=== PATIENT | female | born 1950 | race Caucasian/White ===

== ENCOUNTER 2017-05-28 11:05 | Emergency (ER) | payer OTHER ==
[~2017-05-28] VITALS: Ht 172.7 cm; Wt 91.0 kg
[~2017-05-28 11:05] MED LIST: CALA180T PO; CLON.1 PO; ENAL20TA81 PO; GLUCTAB PO; LORTS PO; MEVA40TA6 PO; PHEN12.5 PR; SYNT25TA PO
[2017-05-28 11:11] VITALS: PULSE 84; RESP 16; TEMP 98.7; O2SAT 95
--- NOTE | 2017-05-28 11:18 | PD ---
HPI Chief Complaint: Fall Time Seen by Provider: 11:15 Travel History International Travel<30 days: No Contact w/Intl Traveler<30days: No Traveled to known affect area: No History of Present Illness HPI 66-year-old female presents emergency department from work after trip and fall that occurred just prior to arrival. Says that she was walking out of the back door and tripped over the door frame, landing straight on her face. Says that she has pain to her nose, chin, left arm, and right arm. Says she fell to her knees as well but denies significant pain or limit to her ROM or ambulation. She denies loss of consciousness, blurred vision, headache. Denies any epistaxis. Denies neck pain or back pain. Says she is particularly concerned about a bruise to the right forearm that is tender to palpation. She denies any numbness or tingling but does have mild pain with range of motion of her forearm and wrist. PFSH Past Medical History Hx Anticoagulant Therapy: No Blood Disorders: No Heart Rhythm Problems: No Cancer: No High Cholesterol: Yes Chest Pain: No Congestive Heart Failure: No Diabetes: Yes Endocrine: Yes GERD: Yes Glaucoma: No Genitourinary: No Hepatitis: No Hiatal Hernia: Yes Hypertension: Yes Immune Disorder: No Musculoskeletal: No Neurologic: No Psychiatric: No Reproductive: No Respiratory: Yes Myocardial Infarction: No Sleep Apnea: Yes Thyroid Disease: Yes Past Surgical History Body Medical Devices: RODS, PINS AND PLATES RIGHT ANKLE Gynecologic Surgery: Yes (2 C SECTIONS, HYSTERECTOMY) Oral Surgery: Yes (MANDIBLE SX AGE 20) Social History Alcohol Use: No Tobacco Use: No Substance Use: No Allergies-Medications (Allergen,Severity, Reaction): Coded Allergies: No Known Allergies (Verified , 11/19/08) Reported Meds & Prescriptions Reported Meds & Active Scripts Active Reported Levothyroxine (Levothyroxine Sodium) 125 Mcg Tab 125 Mcg PO DAILY Lisinopril 20 Mg Tab 20 Mg PO DAILY Citalopram (Citalopram Hydrobromide) 10 Mg Tab 10 Mg PO DAILY Verapamil (Verapamil HCl) 80 Mg Tab 180 Mg PO BID Review of Systems Except as stated in HPI: all other systems reviewed are Neg Physical Exam Narrative GENERAL: WD, WN in NAD, ambulatory SKIN: Focused skin assessment warm/dry. HEAD: Atraumatic. Normocephalic. Nose- small abrasion, bleeding controlled with pressure. No epistaxis. Chin with small 1-1/2 cm abrasion, ecchymosis present EYES: Pupils equal and round. No scleral icterus. No injection or drainage. EOMI ENT: No nasal bleeding or discharge. Mucous membranes pink and moist. NECK: Trachea midline. No JVD. No midline TTP CARDIOVASCULAR: Regular rate and rhythm. No murmur appreciated. RESPIRATORY: No accessory muscle use. Clear to auscultation. Breath sounds equal bilaterally. GASTROINTESTINAL: Abdomen soft, non-tender, nondistended. Hepatic and splenic margins not palpable. right arm-full range of motion of shoulder and elbow. Tender palpation mid forearm, TTP to first and fourth and fifth metacarpals with slight ecchymosis. left arm-TTP to base of thumb and wrist BACK: No CVA tenderness. No rash. No point tenderness on palpation of the spine. MUSCULOSKELETAL: No obvious deformities. No clubbing. No cyanosis. No edema. NEUROLOGICAL: Awake and alert. No obvious cranial nerve deficits. Motor grossly within normal limits. Normal speech. PSYCHIATRIC: Appropriate mood and affect; insight and judgment normal. Data Data Last Documented VS Vital Signs Date Time Temp Pulse Resp B/P (MAP) Pulse Ox O2 Delivery O2 Flow Rate FiO2 05/28/17 14:04 05/28/17 11:11 98.7 [address] Facial Bones W/O Iv Cont (05/28/17 ) Ct Brain W/O Iv Contrast(Rout) (05/28/17 ) Ct Cerv Spine W/O Contrast (05/28/17 ) Forearm (2vws) (05/28/17 ) Hand, Complete (Kqu6saj) (05/28/17 ) Wrist, Complete ([id number]) (05/28/17 ) Hand, Complete ([id number]) (05/28/17 ) Ed Discharge Order (05/28/17 13:13) [facility] Medical Decision Making Medical Screen Exam Complete: Yes Emergency Medical Condition: Yes Differential Diagnosis nasal contusion, arm fracture, arm contusion Narrative Course 66-year-old female presents emergency department for evaluation of multiple injuries as a result of a trip and fall that occurred today. Last tetanus less than 5 years ago. Vital signs are stable. Imaging studies ordered for evaluation. Last Impressions Wrist X-Ray 05/28/17 0000 Signed Impressions: Service Date/Time: Sunday, May 28, 2017 11:33 - CONCLUSION: Negative for fracture or dislocation. Follow up in 7-10 days is suggested if symptoms persist. Ash Yung MD FACR Radius/Ulna X-Ray 05/28/17 0000 Signed Impressions: Service Date/Time: Sunday, May 28, 2017 11:33 - CONCLUSION: No acute right forearm abnormality is identified. Gael Pisano MD Maxillofacial CT 05/28/17 0000 Signed Impressions: Service Date/Time: Sunday, May 28, 2017 12:11 - CONCLUSION: Nondisplaced fractures paranasal spine. Septum is midline. Sinuses are clear. Ash Yung MD FACR Head CT 05/28/17 0000 Signed Impressions: Service Date/Time: Sunday, May 28, 2017 12:11 - CONCLUSION: No acute intracranial abnormality is identified. Gael Pisano MD Hand X-Ray 05/28/17 0000 Signed Impressions: Service Date/Time: Sunday, May 28, 2017 11:33 - CONCLUSION: Negative for fracture or dislocation. Follow up in 7-10 days is suggested if symptoms persist. Ash Yung MD FACR Hand X-Ray 05/28/17 0000 Signed Impressions: Service Date/Time: Sunday, May 28, 2017 11:33 - CONCLUSION: No acute right hand abnormality is identified. Gael Pisano MD Cervical Spine CT 05/28/17 0000 Signed Impressions: Service Date/Time: Sunday, May 28, 2017 12:11 - CONCLUSION: Reversal the normal cervical lordosis without fracture. Mild facet disease with minimal spinal stenosis C5-C6. Ash Yung MD FACR Advised that she should take Tylenol or Motrin per package instructions for pain. Advised that she should avoid nose blowing to reduce complications regarding nasal bone fracture. She should follow-up with her primary care physician for further evaluation. If her symptoms persist or worsen return to the emergency department for further evaluation. She states understanding will comply. Diagnosis Primary Impression: Nasal bone fracture Qualified Codes: S02.2XXA - Fracture of nasal bones, initial encounter for closed fracture Additional Impressions: Wrist contusion Qualified Codes: S60.212A - Contusion of left wrist, initial encounter Arm contusion Qualified Codes: S40.021A - Contusion of right upper arm, initial encounter Referrals: Primary Care Physician Additional Instructions: Use ice or heat for symptom relief. Elevate the joint above the heart to reduce swelling. You may use compression with Jon wrap or similar to reduce swelling. If symptoms persist or worsen, return to the emergency department. Follow up with your primary care physician within 2 days. Avoid any possible trauma to the nose. Avoid nose blowing for 1-2 weeks while your nose is healing. You may develop worsening bruises to the nose. This is normal. Apply ice to reduce swelling. Disposition: 01 DISCHARGE HOME Condition: Stable Funmi Castro May 28, 2017 11:18
[2017-05-28] MEDS ORDERED: VERA80TA PO (11:23)
[2017-05-28] MEDS ORDERED: LEVO125T4 PO (11:23)
[2017-05-28] MEDS ORDERED: CITA10TA4 PO (11:23)
[2017-05-28] MEDS ORDERED: LISI-515 PO (11:23)
--- NOTE | 2017-05-28 12:21 | RADRPT ---
EXAM DATE/TIME: 05/28/2017 11:33 [facility] COMPARISON: No previous studies available for comparison. INDICATIONS : Patient fell complains of pain Right forearm MEDICAL HISTORY : None. SURGICAL HISTORY : None. ENCOUNTER: Initial ACUITY: 1 day PAIN SCORE: 6/10 LOCATION: Right forearm FINDINGS: AP and lateral views of the right forearm demonstrate no fracture or dislocation. No soft tissue abno rmality or radiopaque foreign body is identified. CONCLUSION: No acute right forearm abnormality is identified. Gael Pisano MD on May 28, 2017 at 12:17 Board Certified Radiologist. This report was verified electronically.
--- NOTE | 2017-05-28 12:23 | RADRPT ---
EXAM DATE/TIME: 05/28/2017 11:33 [facility] COMPARISON: No previous studies available for comparison. INDICATIONS : Right hand pain post fall MEDICAL HISTORY : None. SURGICAL HISTORY : None. ENCOUNTER: Initial ACUITY: 1 day PAIN SCORE: 6/10 LOCATION: Right hand FINDINGS: 3 views of the right hand demonstrate no fracture or dislocation. Mineralization is normal. No soft t issue abnormality or radiopaque foreign body is identified. CONCLUSION: No acute right hand abnormality is identified. Gael Pisano MD on May 28, 2017 at 12:20 Board Certified Radiologist. This report was verified electronically.
--- NOTE | 2017-05-28 12:32 | RADRPT ---
EXAM DATE/TIME: 05/28/2017 11:33 [facility] COMPARISON: No previous studies available for comparison. INDICATIONS : Left hand pain, Post fall MEDICAL HISTORY : None. SURGICAL HISTORY : None. ENCOUNTER: Initial ACUITY: 1 day PAIN SCORE: 6/10 LOCATION: Left hand FINDINGS: Three view examination of the left hand demonstrates no soft tissue swelling, dislocation, or fractur e. The carpal bones appear intact. The interphalangeal and metacarpophalangeal joints are intact. Bony mineralization is normal. CONCLUSION: Negative for fracture or dislocation. Follow up in 7-10 days is suggested if symptoms persist. Ash Yung MD FACR on May 28, 2017 at 12:25 Board Certified Radiologist. This report was verified electronically.
--- NOTE | 2017-05-28 12:33 | RADRPT ---
EXAM DATE/TIME: 05/28/2017 11:33 [facility] COMPARISON: No previous studies available for comparison. INDICATIONS : Left wrist pain, Post fall MEDICAL HISTORY : None. SURGICAL HISTORY : None. ENCOUNTER: Initial ACUITY: 1 day PAIN SCORE: 6/10 LOCATION: Left wrist FINDINGS: Three view examination of the left wrist demonstrates no soft tissue swelling, dislocation, or fractu re. The carpal bones are in normal alignment. The joint spaces are maintained. Bony mineralization is normal. CONCLUSION: Negative for fracture or dislocation. Follow up in 7-10 days is suggested if symptoms persist. Ash Yung MD FACR on May 28, 2017 at 12:30 Board Certified Radiologist. This report was verified electronically.
--- NOTE | 2017-05-28 12:39 | RADRPT ---
EXAM DATE/TIME: 05/28/2017 12:11 [facility] COMPARISON: No previous studies available for comparison. INDICATIONS : Fell at worked and landed on face. Nose and chin pain. RADIATION DOSE: 56.80 CTDIvol (mGy) MEDICAL HISTORY : Hypertension. SURGICAL HISTORY : section. Hysterectomy.Mandible Surgery. ENCOUNTER: Initial ACUITY: 1 day PAIN SCALE: 6/10 LOCATION: cranial TECHNIQUE: Multiple contiguous axial images were obtained of the head. Using automated exposure control and adj ustment of the mA and/or kV according to patient size, radiation dose was kept as low as reasonably a chievable to obtain optimal diagnostic quality images. DICOM format image data is available electro nically for review and comparison. FINDINGS: CEREBRUM: The ventricles are normal. No evidence of midline shift, mass lesion, hemorrhage or acute infarction . No extra-axial fluid collections are seen. POSTERIOR FOSSA: The cerebellum and brainstem demonstrate no acute finding. The 4th ventricle is midline. The cerebe llopontine angle is unremarkable. EXTRACRANIAL: Visualized sinuses are clear. SKULL: The calvaria is intact. No evidence of skull fracture. CONCLUSION: No acute intracranial abnormality is identified. Gael Pisano MD on May 28, 2017 at 12:35 Board Certified Radiologist. This report was verified electronically.
--- NOTE | 2017-05-28 13:03 | RADRPT ---
EXAM DATE/TIME: 05/28/2017 12:11 [facility] COMPARISON: No previous studies available for comparison. INDICATIONS : Fell at worked and landed on face. Nose and chin pain. RADIATION DOSE: 25.66 CTDIvol (mGy) MEDICAL HISTORY : Hypertension. SURGICAL HISTORY : section. Hysterectomy.Mandible surgery. ENCOUNTER: Initial ACUITY: 1 day PAIN SCORE: 6/10 LOCATION: facial TECHNIQUE: Volumetric scanning of the facial bones was performed. Using automated exposure control and adjustme nt of the mA and/or kV according to patient size, radiation dose was kept as low as reasonably achiev able to obtain optimal diagnostic quality images. DICOM format image data is available electronicall y for review and comparison. FINDINGS: ORBITS: The orbital and infraorbital osseous structures are intact. The retroconal structures have a normal configuration. No radiopaque foreign bodies are seen. NASAL BONE: Nondisplaced fracture the paranasal spine. ZYGOMATIC ARCHES: Symmetric without evidence of fracture. SINUSES: The maxillary, ethmoid and frontal sinuses are intact. No air-fluid levels seen. NASAL CAVITY: The nasal septum is intact and midline. The lacrimal ducts are intact. SOFT TISSUES: No radiopaque foreign bodies seen. No soft-tissue swelling is seen. INTRACRANIAL: No intracranial air seen. CRIBIFORM PLATE: Grossly intact. CONCLUSION: Nondisplaced fractures paranasal spine. Septum is midline. Sinuses are clear. Ash Yung MD FACR on May 28, 2017 at 13:00 Board Certified Radiologist. This report was verified electronically.
--- NOTE | 2017-05-28 13:05 | RADRPT ---
EXAM DATE/TIME: 05/28/2017 12:11 [facility] COMPARISON: No previous studies available for comparison. INDICATIONS : Fell at worked and landed on face. Pain. RADIATION DOSE: 24.34 CTDIvol (mGy) MEDICAL HISTORY : Hypertension. SURGICAL HISTORY : section. Hysterectomy.Mandible surgery. ENCOUNTER: Initial ACUITY: 1 day PAIN SCALE: 6/10 LOCATION: neck TECHNIQUE: Volumetric scanning of the cervical spine was performed. Multiplanar reconstructions in the sagittal, coronal and oblique axial planes were performed. Using automated exposure control and adjustment o f the mA and/or kV according to patient size, radiation dose was kept as low as reasonably achievable to obtain optimal diagnostic quality images. DICOM format image data is available electronically f or review and comparison. FINDINGS: VERTEBRAE: Normal vertebral body height. ALIGNMENT: Reversal of the normal cervical lordosis. C2-C3: The bony spinal canal is normal in size. No evidence of disc bulge or herniation. The neural forami na are bilaterally patent. C3-C4: Mild facet disease without significant spinal stenosis. Minimal neural foraminal encroachment. C4-C5: Mild central disc bulging present facet with out spinal stenosis or neural foraminal encroachment. C5-C6: Mild uncinate ridging with minimal bilateral foraminal encroachment. C6-C7: Mild uncinate ridging bilateral neural foramen encroachment dorsal the right. There is no significan t spinal stenosis. C7-T1: The bony spinal canal is normal in size. No evidence of disc bulge or herniation. The neural forami na are bilaterally patent. CONCLUSION: Reversal the normal cervical lordosis without fracture. Mild facet disease with minimal spinal steno sis C5-C6. Ash Yung MD FACR on May 28, 2017 at 13:01 Board Certified Radiologist. This report was verified electronically.
[2017-05-28 13:35] VITALS: BP 188/100
== END 2017-05-28 14:05 | disposition home or self-care (01) ==
LOC: PHEFT 11:05
DX: S02.2XXA Fracture of nasal bones, initial encounter for closed fracture (principal); S60.212A Contusion of left wrist, initial encounter; S40.021A Contusion of right upper arm, initial encounter; E78.00 Pure hypercholesterolemia, unspecified; E11.9 Type 2 diabetes mellitus without complications; K21.9 Gastro-esophageal reflux disease without esophagitis; I10 Essential (primary) hypertension; W01.10XA Fall on same level from slipping, tripping and stumbling with subsequent striking against unspecified object, initial encounter
CPT/HCPCS: 70450; 70486; 72125; 73090; 73110; 73130